=== PATIENT | female | born 1935 | race Caucasian/White ===

== ENCOUNTER 2022-04-04 17:43 | Inpatient (IN) | payer MEDICARE, MEDICAID ==
[~2022-04-04] VITALS: Ht 154.9 cm; Wt 61.0 kg
[2022-04-04 19:11] LABS: Basophils # (auto) 0 10 ^3/uL (0-0.2); Basophils % (auto) 0.2 % (0.0-2.0); Eosinophils # (auto) 0 10 ^3/uL (0-0.8); Eosinophils % (auto) 0.2 % (0.0-7.0); Hematocrit 45.1 % (36.0-46.0); Hemoglobin 14.7 g/dL (12.2-16.2); Lymphocytes # (auto) 0.5 10 ^3/uL (0.4-5.4); Lymphocytes % (auto) 3.9 % (10.0-50.0); Mean Corpuscular Hemoglobin 28.2 pg (28.0-32.0); Mean Corpuscular Hgb Conc. 32.5 g/dL (32.0-36.0); Mean Corpuscular Volume 86.8 fL (80.0-100.0); Monocytes # (auto) 0.5 10 ^3/uL (0-1.3); Monocytes % (auto) 4.3 % (0.0-12.0); Neutrophils # (auto) 11.1 10 ^3/uL (1.6-8.6); Neutrophils % (auto) 91.4 % (37.0-80.0); Red Cell Distribution Width 14.4 % (11.8-14.3); White Blood Cell 12.1 10^3/uL (4.4-10.8)
[2022-04-04 19:31] LABS: Albumin 3.7 g/dL (3.4-5.0); Calcium 9.6 mg/dL (8.5-10.1)
[2022-04-04 19:34] LABS: BUN/Creatinine Ratio 31.9; Bilirubin, Total 1.2 mg/dL (0.2-1.0); Total Protein 7.9 g/dL (6.4-8.2)
[2022-04-04 22:24] LABS: Urine Blood Negative /uL (Negative); Urine Specific Gravity 1.016 (1.001-1.035)
[2022-04-04 23:07] LABS: Urine Bacteria FEW /hpf (None Seen); Urine WBC 48 /hpf (0 - 5)
[2022-04-05] MEDS ORDERED: traMADol HCL 50 MG TAB PO ONE (00:15)
[2022-04-05] MEDS ORDERED: cefTRIAXone 1GM/50ML D5W 50 ML IV ONE (05:15)
[2022-04-05] MEDS ORDERED: ONDANSETRON HCL 4 MG/2 ML VIAL IV PRN (07:15)
[2022-04-05] MEDS ORDERED: NITROGLYCERIN 0.4 MG SL TAB SL PRN (07:15)
[2022-04-05] MEDS ORDERED: MORPHINE SULFATE INJ 2 MG/ml SYRG IV PRN (07:15)
[2022-04-05] MEDS ORDERED: DOCUSATE SOD 100 MG CAP PO PRN (07:15)
[2022-04-05] MEDS ORDERED: ACETAMINOPHEN 325 MG TAB PO PRN (07:15)
[2022-04-05 08:21] LABS: Basophils # (auto) 0 10 ^3/uL (0-0.2); Basophils % (auto) 0.6 % (0.0-2.0); Eosinophils # (auto) 0 10 ^3/uL (0-0.8); Eosinophils % (auto) 0.7 % (0.0-7.0); Hematocrit 38.2 % (36.0-46.0); Hemoglobin 12.3 g/dL (12.2-16.2); Mean Corpuscular Hemoglobin 27.9 pg (28.0-32.0); Mean Corpuscular Hgb Conc. 32.2 g/dL (32.0-36.0); Mean Corpuscular Volume 86.7 fL (80.0-100.0); Monocytes # (auto) 0.6 10 ^3/uL (0-1.3); Monocytes % (auto) 9.4 % (0.0-12.0); Neutrophils # (auto) 4.4 10 ^3/uL (1.6-8.6); Neutrophils % (auto) 72.3 % (37.0-80.0); Nucleated Red Blood Cells % 0.1 %; Red Cell Distribution Width 14.4 % (11.8-14.3)
[2022-04-05 08:55] LABS: Potassium 4.8 mmol/L (3.5-5.1)
[2022-04-05 09:03] LABS: Albumin 3.1 g/dL (3.4-5.0); BUN/Creatinine Ratio 27.4; Bilirubin, Total 1.1 mg/dL (0.2-1.0); Calcium 9.2 mg/dL (8.5-10.1); Total Protein 6.9 g/dL (6.4-8.2)
[2022-04-05] MEDS: SODIUM CHLORIDE 0.9% 1,000 ML IV SCH (10:24)
[2022-04-05] MEDS: cefTRIAXone 1GM/50ML D5W 50 ML IV SCH (10:29)
[2022-04-05] MEDS: HYDROcodone-ACET 5/325MG TAB PO PRN ×2 (10:34→21:05)
[2022-04-05] MEDS: FAMOTIDINE (10MG/ML) 2ML VL IV SCH (10:34)
[2022-04-06] MEDS: SODIUM CHLORIDE 0.9% 1,000 ML IV SCH ×2 (00:23→08:56)
[2022-04-06 00:30] VITALS: BP 115/70
[2022-04-06 05:06] VITALS: BP 129/81
[2022-04-06 06:49] LABS: Albumin 2.8 g/dL (3.4-5.0); Calcium 8.6 mg/dL (8.5-10.1); Potassium 4.6 mmol/L (3.5-5.1)
[2022-04-06 06:54] LABS: BUN/Creatinine Ratio 28.5; Bilirubin, Total 0.8 mg/dL (0.2-1.0); Total Protein 6.4 g/dL (6.4-8.2)
[2022-04-06 07:08] LABS: Basophils # (auto) 0 10 ^3/uL (0-0.2); Basophils % (auto) 0.8 % (0.0-2.0); Eosinophils # (auto) 0.1 10 ^3/uL (0-0.8); Eosinophils % (auto) 3.1 % (0.0-7.0); Hemoglobin 11.9 g/dL (12.2-16.2); Lymphocytes # (auto) 0.9 10 ^3/uL (0.4-5.4); Lymphocytes % (auto) 20.3 % (10.0-50.0); Mean Corpuscular Hemoglobin 28.5 pg (28.0-32.0); Mean Corpuscular Volume 86.5 fL (80.0-100.0); Monocytes # (auto) 0.4 10 ^3/uL (0-1.3); Monocytes % (auto) 9.1 % (0.0-12.0); Neutrophils # (auto) 2.8 10 ^3/uL (1.6-8.6); Neutrophils % (auto) 66.7 % (37.0-80.0); Red Blood Cells 4.17 10^6/uL (4.0-5.20); Red Cell Distribution Width 14.4 % (11.8-14.3); White Blood Cell 4.2 10^3/uL (4.4-10.8)
[2022-04-06] MEDS: HYDROcodone-ACET 5/325MG TAB PO PRN ×3 (08:55→23:48)
[2022-04-06] MEDS: cefTRIAXone 1GM/50ML D5W 50 ML IV SCH (08:56)
[2022-04-06 09:00] VITALS: BP 154/73
[2022-04-06 13:00] VITALS: BP 123/60
[2022-04-06 14:50] LABS: Hepatitis C Antibody Negative (Negative)
[2022-04-06 17:00] VITALS: BP 92/52
[2022-04-06 22:00] VITALS: BP 131/67
[2022-04-07 05:00] VITALS: BP 141/76
[2022-04-07 05:45] LABS: Basophils # (auto) 0.1 10 ^3/uL (0-0.2); Basophils % (auto) 1.1 % (0.0-2.0); Eosinophils # (auto) 0.2 10 ^3/uL (0-0.8); Eosinophils % (auto) 4.6 % (0.0-7.0); Hematocrit 34.7 % (36.0-46.0); Hemoglobin 11.7 g/dL (12.2-16.2); Mean Corpuscular Hemoglobin 29.2 pg (28.0-32.0); Mean Corpuscular Hgb Conc. 33.7 g/dL (32.0-36.0); Mean Corpuscular Volume 86.7 fL (80.0-100.0); Monocytes # (auto) 0.5 10 ^3/uL (0-1.3); Monocytes % (auto) 10.8 % (0.0-12.0); Neutrophils # (auto) 2.9 10 ^3/uL (1.6-8.6); Neutrophils % (auto) 61.5 % (37.0-80.0); Red Cell Distribution Width 14.3 % (11.8-14.3); White Blood Cell 4.7 10^3/uL (4.4-10.8)
[2022-04-07 05:56] LABS: BUN/Creatinine Ratio 28.7; Calcium 8.7 mg/dL (8.5-10.1); Potassium 4.2 mmol/L (3.5-5.1)
[2022-04-07] MEDS: HYDROcodone-ACET 5/325MG TAB PO PRN (05:56)
[2022-04-07] MEDS ORDERED: UMEC1AER IN (06:30)
[2022-04-07] MEDS ORDERED: CHOL20007 PO (06:30)
[2022-04-07] MEDS ORDERED: WARF2.5T39 PO (06:30)
[2022-04-07] MEDS ORDERED: LISI20TA28 PO (06:30)
[2022-04-07] MEDS ORDERED: ALBU0.084 IN (06:30)
[2022-04-07] MEDS ORDERED: TRAM50TA2 PO (06:30)
[2022-04-07 09:00] VITALS: BP 180/84
[2022-04-07] MEDS: cefTRIAXone 1GM/50ML D5W 50 ML IV SCH (09:05)
[2022-04-07] MEDS: FAMOTIDINE (10MG/ML) 2ML VL IV SCH (09:06)
[2022-04-07] MEDS: SODIUM CHLORIDE 0.9% 1,000 ML IV SCH (09:07)
[2022-04-07] MEDS ORDERED: LISINOPRIL 10 MG TAB PO ONE (10:45)
[2022-04-07] MEDS ORDERED: traMADol HCL 50 MG TAB PO PRN (11:00)
[2022-04-07 11:59] LABS: INR 1.47 (0.9-1.15); Partial Thromboplastin Time 33.6 sec (24.6-33.4)
[2022-04-07 13:00] VITALS: BP 149/67
[2022-04-07 16:54] VITALS: BP 146/95
[2022-04-07] MEDS ORDERED: WARFARIN SODIUM 2 MG TAB PO ONE (17:00)
[2022-04-07 22:00] VITALS: BP 152/83
[2022-04-08] MEDS: SODIUM CHLORIDE 0.9% 1,000 ML IV SCH (02:16)
[2022-04-08 05:00] VITALS: BP 152/87
[2022-04-08 05:48] LABS: INR 1.33 (0.9-1.15); Partial Thromboplastin Time 34.6 sec (24.6-33.4)
[2022-04-08 06:05] LABS: BUN/Creatinine Ratio 21.3; Calcium 8.7 mg/dL (8.5-10.1)
[2022-04-08] MEDS: cefTRIAXone 1GM/50ML D5W 50 ML IV SCH (08:32)
[2022-04-08 09:28] VITALS: BP 152/93
[2022-04-08] MEDS ORDERED: FAMOTIDINE 20 MG TAB PO SCH (10:00)
[2022-04-08] MEDS ORDERED: LISINOPRIL 10 MG TAB PO SCH (10:00)
[2022-04-08] MEDS ORDERED: CEFD300C2 PO (10:07)
[2022-04-08 11:02] VITALS: BP 130/93
[2022-04-08] MEDS ORDERED: WARFARIN SODIUM 2 MG TAB PO ONE (17:00)
== END 2022-04-08 13:50 | disposition home health service (06) | DRG 871 ==
LOC: ER 17:48 → OVERFLOW 04-05 07:01 → CENTRAL 04-05 23:44
PROVIDERS: ADMIT Nurse Practitioner Family; ATTEND Internal Medicine
DX: A41.9 Sepsis, unspecified organism (principal); N17.0 Acute kidney failure with tubular necrosis; N39.0 Urinary tract infection, site not specified; J44.0 Chronic obstructive pulmonary disease with (acute) lower respiratory infection; I10 Essential (primary) hypertension; K21.9 Gastro-esophageal reflux disease without esophagitis; R55 Syncope and collapse; Z20.822 Contact with and (suspected) exposure to COVID-19; G89.29 Other chronic pain; M10.9 Gout, unspecified; Z86.718 Personal history of other venous thrombosis and embolism; Z87.01 Personal history of pneumonia (recurrent); Z93.3 Colostomy status
CPT/HCPCS: 36415; 71045; 80048; 80053; 81001; 83880; 84484; 85025; 85610; 85730; 86803; 87086; 87340; 87426; 93005; 93306; 96365; 96375; 97163; G0378; J0696; J3490

== ENCOUNTER 2023-09-21 09:41 | Inpatient (IN) | payer MEDICARE, MEDICAID ==
[~2023-09-21] VITALS: Ht 165.1 cm; Wt 57.0 kg
[~2023-09-21 09:41] MED LIST: ALBU0.084 IN; CEFD300C2 PO; CHOL20007 PO; LISI20TA56 PO; TRAM50TA2 PO; UMEC1AER IN; WARF-110 PO
[2023-09-21] MEDS: DEXTROSE 10% 250 ML IV ONE (10:45)
[2023-09-21] MEDS: DEXTROSE (50%) 50ML SYRG IV ONE (10:45)
[2023-09-21 13:21] LABS: Basophils # (auto) 0 10 ^3/uL (0-0.2); Basophils % (auto) 0.5 % (0.0-2.0); Eosinophils # (auto) 0 10 ^3/uL (0-0.8); Eosinophils % (auto) 0.2 % (0.0-7.0); Hematocrit 28.9 % (36.0-46.0); Hemoglobin 9.3 g/dL (12.2-16.2); Lymphocytes # (auto) 0.6 10 ^3/uL (0.4-5.4); Lymphocytes % (auto) 12.2 % (10.0-50.0); Mean Corpuscular Hemoglobin 28.9 pg (28.0-32.0); Mean Corpuscular Hgb Conc. 32.1 g/dL (32.0-36.0); Mean Corpuscular Volume 90.2 fL (80.0-100.0); Monocytes # (auto) 0.3 10 ^3/uL (0-1.3); Monocytes % (auto) 5.4 % (0.0-12.0); Neutrophils # (auto) 3.9 10 ^3/uL (1.6-8.6); Neutrophils % (auto) 81.7 % (37.0-80.0); Red Cell Distribution Width 17.9 % (11.8-14.3); White Blood Cell 4.8 10^3/uL (4.4-10.8)
[2023-09-21 13:37] LABS: INR 1.32 (0.9-1.15); Partial Thromboplastin Time 35.8 SEC (24.5-34.5); Prothrombin Time 13.7 sec (9.3-11.8)
[2023-09-21 13:42] LABS: Albumin 2.9 g/dL (3.2-4.8); Alkaline Phosphatase 52 U/L (46-116); Anion Gap 9 (5-15); Aspartate Aminotransferase 20 U/L (13-40); Blood Urea Nitrogen 25 mg/dL (9-23); Calcium 8.3 mg/dL (8.7-10.4); Carbon Dioxide 23 mmol/L (20-30); Chloride 102 mmol/L (98-107); Glucose 337 mg/dL (74-106); Potassium 3.9 mmol/L (3.5-5.1); Sodium 134 mmol/L (136-145)
[2023-09-21 13:43] LABS: Bilirubin, Total 0.6 mg/dL (0.2-1.0)
[2023-09-21 13:50] LABS: Alanine Aminotransferase < 9 U/L (7-40)
[2023-09-21] MEDS: ACCU-CHEK COMFORT CURVE STRIP VI SCH (14:00)
[2023-09-21] MEDS: SODIUM CHLOR 0.9% PF (SALINE LOCK) 10ML VIAL/SYR IV SCH (14:00)
[2023-09-21] MEDS ORDERED: NITROGLYCERIN 0.4 MG SL TAB SL PRN (14:00)
[2023-09-21] MEDS ORDERED: ACETAMINOPHEN 325 MG TAB PO PRN (14:00)
[2023-09-21] MEDS ORDERED: ONDANSETRON HCL 4 MG/2 ML VIAL IV PRN (14:00)
[2023-09-21] MEDS ORDERED: DOCUSATE SOD 100 MG CAP PO PRN (14:00)
[2023-09-21] MEDS ORDERED: DEXTROSE (50%) 50ML SYRG IV PRN (14:00)
[2023-09-21] MEDS ORDERED: MORPHINE SULFATE INJ 2 MG/ml SYRG IV PRN (14:00)
[2023-09-21] MEDS ORDERED: CLON0.1T PO (14:06)
[2023-09-21] MEDS ORDERED: APIX2.5T PO (14:06)
[2023-09-21] MEDS ORDERED: METO25TA93 PO (14:06)
[2023-09-21] MEDS ORDERED: cloNIDine HCL 0.1 MG TAB PO PRN (14:15)
[2023-09-21] MEDS: DEXTROSE 10% 1,000 ML IV SCH (15:04)
[2023-09-21] MEDS: HYDROcodone-ACET 5/325MG TAB PO PRN (18:17)
[2023-09-21 19:50] VITALS: RESP 14
[2023-09-21] MEDS: traMADol HCL 50 MG TAB PO SCH (22:11)
[2023-09-21] MEDS: APIXABAN 2.5 MG TAB PO SCH (22:11)
[2023-09-21 23:31] VITALS: PULSE 72
[2023-09-22] VITALS (7 sets, daily range): BP systolic 100–136; BP diastolic 63–95; PULSE 65–98; RESP 16–20; TEMP 97.9–98.1; O2SAT 97–99
[2023-09-22 05:17] LABS: Basophils # (auto) 0 10 ^3/uL (0-0.2); Basophils % (auto) 0.7 % (0.0-2.0); Eosinophils # (auto) 0 10 ^3/uL (0-0.8); Eosinophils % (auto) 1.1 % (0.0-7.0); Hematocrit 27.4 % (36.0-46.0); Hemoglobin 9.4 g/dL (12.2-16.2); Lymphocytes # (auto) 0.8 10 ^3/uL (0.4-5.4); Lymphocytes % (auto) 18.8 % (10.0-50.0); Mean Corpuscular Hemoglobin 29.3 pg (28.0-32.0); Mean Corpuscular Hgb Conc. 34.1 g/dL (32.0-36.0); Mean Corpuscular Volume 85.8 fL (80.0-100.0); Monocytes # (auto) 0.4 10 ^3/uL (0-1.3); Monocytes % (auto) 9.6 % (0.0-12.0); Neutrophils # (auto) 2.9 10 ^3/uL (1.6-8.6); Neutrophils % (auto) 69.8 % (37.0-80.0); Nucleated Red Blood Cells % 0.1 %; Red Cell Distribution Width 17.1 % (11.8-14.3); White Blood Cell 4.2 10^3/uL (4.4-10.8)
[2023-09-22 05:33] LABS: Albumin 2.9 g/dL (3.2-4.8); Alkaline Phosphatase 52 U/L (46-116); Anion Gap 7 (5-15); Aspartate Aminotransferase 21 U/L (13-40); BUN/Creatinine Ratio 16.2 (10.0-20.0); Blood Urea Nitrogen 19 mg/dL (9-23); Calcium 8.5 mg/dL (8.7-10.4); Carbon Dioxide 25 mmol/L (20-30); Chloride 105 mmol/L (98-107); Glucose 88 mg/dL (74-106); Potassium 3.3 mmol/L (3.5-5.1); Sodium 137 mmol/L (136-145)
[2023-09-22 05:34] LABS: Bilirubin, Total 0.5 mg/dL (0.2-1.0); Total Protein 5.2 g/dL (5.7-8.2)
[2023-09-22 05:35] LABS: Alanine Aminotransferase < 9 U/L (7-40)
[2023-09-22 09:04] LABS: % Iron Saturation 22.2 % (15-50)
[2023-09-22 09:09] LABS: Magnesium 1.4 mg/dL (1.6-2.6)
[2023-09-22 09:09] LABS: Ferritin 177.4 ng/mL (10-291); Folate (Folic Acid) 12.8 ng/mL (>5.38)
[2023-09-22] MEDS: UMECLIDINIUM VILANTEROL IN SCH (10:00)
[2023-09-22] MEDS: METOPROLOL SUCCINATE XL 50 MG TAB PO SCH (10:10)
[2023-09-22] MEDS: CHOLECALCIFEROL (VITD3) 1,000UNIT=25mCg TAB PO SCH (10:10)
[2023-09-22] MEDS: POTASSIUM EFFERVESENT TAB 25 MEQ PO ONE (10:10)
[2023-09-22] MEDS: PANTOPRAZOLE 40 MG TAB PO SCH (11:59)
[2023-09-22] MEDS: POTASSIUM CHL 20 Meq TABLET PO ONE (11:59)
[2023-09-22] MEDS: PIPERACILLIN-TAZOB 3.375GM 100 ML IV SCH (13:37)
[2023-09-22] MEDS: MAGNESIUM SULFATE 1GM/100ML 100 ML IV SCH ×2 (13:37→21:56)
[2023-09-23] VITALS (8 sets, daily range): BP systolic 104–130; BP diastolic 60–77; PULSE 56–79; RESP 12–19; TEMP 97.8–98.3; O2SAT 94–100
[2023-09-23] MEDS: ACCU-CHEK COMFORT CURVE STRIP VI SCH (00:08)
[2023-09-23 06:58] LABS: Basophils # (auto) 0 10 ^3/uL (0-0.2); Basophils % (auto) 0.8 % (0.0-2.0); Eosinophils # (auto) 0.1 10 ^3/uL (0-0.8); Eosinophils % (auto) 1.6 % (0.0-7.0); Hematocrit 32.5 % (36.0-46.0); Hemoglobin 10.4 g/dL (12.2-16.2); Lymphocytes # (auto) 0.8 10 ^3/uL (0.4-5.4); Lymphocytes % (auto) 19.6 % (10.0-50.0); Mean Corpuscular Hemoglobin 28.9 pg (28.0-32.0); Mean Corpuscular Hgb Conc. 32.1 g/dL (32.0-36.0); Mean Corpuscular Volume 90.2 fL (80.0-100.0); Monocytes # (auto) 0.4 10 ^3/uL (0-1.3); Monocytes % (auto) 10.6 % (0.0-12.0); Neutrophils # (auto) 2.8 10 ^3/uL (1.6-8.6); Neutrophils % (auto) 67.4 % (37.0-80.0); Nucleated Red Blood Cells % 0.1 %; Red Cell Distribution Width 17.9 % (11.8-14.3); White Blood Cell 4.2 10^3/uL (4.4-10.8)
[2023-09-23 07:07] LABS: RPR Non Reactive (Non Reactive)
[2023-09-23 07:17] LABS: Anion Gap 5 (5-15); Calcium 8.4 mg/dL (8.5-10.1); Carbon Dioxide 26 mmol/L (20-30); Chloride 104 mmol/L (98-107); Potassium 4.3 mmol/L (3.5-5.1); Sodium 135 mmol/L (136-145)
[2023-09-23 07:23] LABS: Cholesterol 72 mg/dL (< 200); Glucose 79 mg/dL (74-106); Triglycerides 71 mg/dL (< 150)
[2023-09-23 07:24] LABS: BUN/Creatinine Ratio 10.5 (10.0-20.0); Blood Urea Nitrogen 11 mg/dL (9-23); LDL Cholesterol 29 mg/dL (< 100)
[2023-09-23 07:25] LABS: HDL Cholesterol 28 mg/dL (40-59); Phosphorus 1.9 mg/dL (2.4-5.1)
[2023-09-23 07:34] LABS: Magnesium 2.6 mg/dL (1.6-2.6)
[2023-09-23] MEDS: CYANOCOBALAMIN (B-12) 1000 MCG/1 ML VIAL IM ONE (20:30)
[2023-09-23] MEDS: PIPERACILLIN-TAZOB 3.375GM 100 ML IV SCH (22:39)
[2023-09-24] VITALS (9 sets, daily range): BP systolic 103–156; BP diastolic 58–82; PULSE 63–75; RESP 16–19; TEMP 97.3–98.3; O2SAT 90–100
[2023-09-24] MEDS: CYANOCOBALAMIN 500 MCG TAB PO SCH (09:38)
[2023-09-25] VITALS (7 sets, daily range): BP systolic 120–140; BP diastolic 52–73; PULSE 59–76; RESP 18–22; TEMP 97.7–98.1; O2SAT 95–98
[2023-09-25] MEDS ORDERED: CLINIMIX PER PHARMACY 0 ML IV SCH (11:30)
[2023-09-25 12:05] LABS: Basophils # (auto) 0 10 ^3/uL (0-0.2); Basophils % (auto) 0.7 % (0.0-2.0); Eosinophils # (auto) 0 10 ^3/uL (0-0.8); Hematocrit 34.1 % (36.0-46.0); Hemoglobin 10.8 g/dL (12.2-16.2); Lymphocytes % (auto) 19.5 % (10.0-50.0); Mean Corpuscular Hemoglobin 29.2 pg (28.0-32.0); Mean Corpuscular Hgb Conc. 31.7 g/dL (32.0-36.0); Mean Corpuscular Volume 92.2 fL (80.0-100.0); Monocytes # (auto) 0.5 10 ^3/uL (0-1.3); Monocytes % (auto) 10.5 % (0.0-12.0); Neutrophils # (auto) 3.4 10 ^3/uL (1.6-8.6); Neutrophils % (auto) 68.3 % (37.0-80.0); Nucleated Red Blood Cells % 0.2 %; Red Cell Distribution Width 18.6 % (11.8-14.3); White Blood Cell 4.9 10^3/uL (4.4-10.8)
[2023-09-25] MEDS: LORazepam 2MG/ML-1ML VIAL IV PRN (12:24)
[2023-09-25 12:26] LABS: Albumin 2.9 g/dL (3.2-4.8); Alkaline Phosphatase 62 U/L (46-116); Anion Gap 4 (5-15); Aspartate Aminotransferase 13 U/L (13-40); BUN/Creatinine Ratio 6.9 (10.0-20.0); Blood Urea Nitrogen 7 mg/dL (9-23); Calcium 8.6 mg/dL (8.5-10.1); Carbon Dioxide 26 mmol/L (20-30); Chloride 107 mmol/L (98-107); Glucose 82 mg/dL (74-106); Magnesium 1.8 mg/dL (1.6-2.6); Potassium 4.1 mmol/L (3.5-5.1); Sodium 137 mmol/L (136-145)
[2023-09-25 12:27] LABS: Bilirubin, Total 0.7 mg/dL (0.2-1.0); Phosphorus 2.2 mg/dL (2.4-5.1); Total Protein 5.6 g/dL (5.7-8.2)
[2023-09-25 12:28] LABS: Alanine Aminotransferase < 9 U/L (7-40)
[2023-09-25] MEDS: FUROSEMIDE 20 MG/2 ML VIAL IV SCH (13:45)
[2023-09-25] MEDS: Ensure HIGH Protein Chocolate 8oz Bottle PO SCH (13:45)
[2023-09-26] VITALS (8 sets, daily range): BP systolic 101–131; BP diastolic 47–76; PULSE 47–76; RESP 17–20; TEMP 97.8–98.9; O2SAT 98–100
[2023-09-26] MEDS: ASPirin 81 mg TAB PO SCH (11:21)
[2023-09-26] MEDS: traMADol HCL 50 MG TAB PO PRN (14:30)
[2023-09-27] VITALS (9 sets, daily range): BP systolic 95–112; BP diastolic 51–57; PULSE 63–79; RESP 16–20; TEMP 97.8–99.1; O2SAT 97–100
[2023-09-27] MEDS ORDERED: IOHEXOL 350 MG/ML 100ML IJ ONE ×2 (09:24→21:15)
[2023-09-28 01:00] VITALS: BP 111/54; PULSE 72; RESP 16; TEMP 98.5; O2SAT 96
[2023-09-28 04:31] VITALS: BP 122/60; PULSE 70; RESP 17; TEMP 97.7; O2SAT 98
[2023-09-28 08:00] VITALS: BP 120/66; PULSE 74; PULSE 82; RESP 20; TEMP 98.4; O2SAT 92
[2023-09-28 09:00] VITALS: BP 120/66; PULSE 82; RESP 20; TEMP 98.4; O2SAT 92
== END 2023-09-28 11:15 | disposition home or self-care (01) | DRG 641 ==
LOC: EDBD 09:41 → ER 09:41 → TELE 14:15 → TELE-WESTW 22:30 → TELE-EAST 09-22 11:08
PROVIDERS: ADMIT Nurse Practitioner Family; ATTEND Nurse Practitioner
PROC: 05HB33Z Insertion of Infusion Device into Right Basilic Vein, Percutaneous Approach (ICD-10-PCS; principal; 2023-09-21)
PROC: B54MZZA Ultrasonography of Right Upper Extremity Veins, Guidance (ICD-10-PCS; 2023-09-21)
DX: E16.2 Hypoglycemia, unspecified (principal); E87.1 Hypo-osmolality and hyponatremia; E46 Unspecified protein-calorie malnutrition; N18.4 Chronic kidney disease, stage 4 (severe); I48.20 Chronic atrial fibrillation, unspecified; I13.0 Hypertensive heart and chronic kidney disease with heart failure and stage 1 through stage 4 chronic kidney disease, or unspecified chronic kidney disease; I50.30 Unspecified diastolic (congestive) heart failure; K21.9 Gastro-esophageal reflux disease without esophagitis; J44.9 Chronic obstructive pulmonary disease, unspecified; E88.09 Other disorders of plasma-protein metabolism, not elsewhere classified; R56.9 Unspecified convulsions; G62.9 Polyneuropathy, unspecified; G90.2 Horner's syndrome; H57.02 Anisocoria; Z79.01 Long term (current) use of anticoagulants; Z79.899 Other long term (current) drug therapy; Z93.3 Colostomy status; Z98.84 Bariatric surgery status; Z87.891 Personal history of nicotine dependence; Z83.3 Family history of diabetes mellitus; Z90.710 Acquired absence of both cervix and uterus; Z90.49 Acquired absence of other specified parts of digestive tract; Z68.20 Body mass index [BMI] 20.0-20.9, adult; Z78.9 Other specified health status
CPT/HCPCS: 36415; 70450; 71045; 71250; 71275; 80048; 80053; 80061; 82140; 82607; 82728; 82746; 82962; 83036; 83540; 83550; 83605; 83735; 83880; 84100; 84443; 84484; 85025; 85379; 85610; 85730; 86141; 86592; 93306; 93886; 93970; 97110; 97116; 97163; 97530; G0378; J2543